=== PATIENT | male | born 1995 | race African-American/Black ===

== ENCOUNTER 2018-01-28 21:11 | Emergency (ER) | payer OTHER ==
[~2018-01-28] VITALS: Ht 182.9 cm; Wt 106.8 kg
[2018-01-28 21:19] VITALS: BP 132/77
[2018-01-28] MEDS: LIDOCAINE 1% 10 ML VIAL INJ ONE (21:48)
[2018-01-28] MEDS: PERTUSS(ACELL),DIPH,TET VAC/PF 0.5 ML VIAL IM ONE (22:03)
[2018-01-28] MEDS: BACITRACIN 0.9 GM PACKET OINTMENT TP ONE (22:10)
== END 2018-01-28 22:32 | disposition home or self-care (01) ==
LOC: EMS 21:13
DX: S61.211A Laceration without foreign body of left index finger without damage to nail, initial encounter (principal); W26.8XXA Contact with other sharp object(s), not elsewhere classified, initial encounter; Y93.89 Activity, other specified; Y92.89 Other specified places as the place of occurrence of the external cause; Y99.8 Other external cause status
CPT/HCPCS: 12001; 90471; 90715; 99283; J3490

== ENCOUNTER 2018-02-07 12:43 | Emergency (ER) | payer OTHER ==
[~2018-02-07] VITALS: Ht 182.9 cm; Wt 100.0 kg
[2018-02-07 12:49] VITALS: BP 140/86
[2018-02-07] MEDS ORDERED: LISI-661 PO (13:08)
[2018-02-07] MEDS ORDERED: CLON-570 PO (13:08)
[2018-02-07] MEDS ORDERED: SOTA160T PO (13:08)
== END 2018-02-07 13:21 | disposition home or self-care (01) ==
LOC: EMS 12:44
DX: S61.211D Laceration without foreign body of left index finger without damage to nail, subsequent encounter (principal); Z48.02 Encounter for removal of sutures; X58.XXXD Exposure to other specified factors, subsequent encounter